=== PATIENT | female | born 1995 | race Caucasian/White ===

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

== ENCOUNTER → 2018-09-15 | Outpatient (CLI) | payer OTHER ==
--- NOTE | 2018-09-15 13:04 | RAD ---
EXAM: Bilateral breast ultrasound. HISTORY: Palpable foci in both breasts. COMPARISON: 11/02/2015. FINDINGS: Sonographic evaluation of both breasts was performed at the sites of palpable concern. At the right 10:00-2:00 positions, only normal parenchyma seen. There is no suspicious sonographic correlate for a palpable focus. At the left 8:00-12:00 positions, only normal parenchyma seen. There is no suspicious sonographic correlate for a palpable focus. IMPRESSION: 1. BI-RADS Category 1: Negative. 2. Recommend ongoing clinical follow-up of palpable foci with imaging reassessment as indicated. 3. Begin screening mammography at age 40 or as otherwise indicated. Electronically signed by: Yovani Tomlin MD (09/15/2018 1:01 PM) [facility]
== END | disposition home or self-care (01) ==
LOC: US 12:23
PROVIDERS: ATTEND Registered Nurse
DX: N63.10 Unspecified lump in the right breast, unspecified quadrant (principal); N63.20 Unspecified lump in the left breast, unspecified quadrant
CPT/HCPCS: 76641

== ENCOUNTER 2020-04-17 15:11 | Emergency (ER) | payer SELFPAY ==
[~2020-04-17] VITALS: Ht 167.6 cm; Wt 99.6 kg
[2020-04-17 15:22] VITALS: BP 109/62
[2020-04-17] MEDS ORDERED: ONDANSETRON ODT 4 MG TAB.RAPDIS PO ONE (15:45)
[2020-04-17 15:59] LABS: CLARITY,URINE HAZY; COLOR,URINE YELLOW; GLUCOSE,URINE NEG (NEG)
[2020-04-17 16:00] LABS: BILIRUBIN,URINE NEG (NEG); NITRITE,URINE NEG (NEG)
[2020-04-17 16:01] LABS: BACTERIA,URINE FEW /HPF (0-FEW); SQUAMOUS EPITHELIAL CELL,UR MANY /LPF
--- NOTE | 2020-04-17 17:46 | PHYS DOC ---
Past History Past Medical History: No Pertinent History Past Surgical History: Tonsillectomy, Other Additional Past Surgical Histo: Gastric sleeve Smoking: Non-smoker Alcohol Use: Occasionally Drug Use: None General Adult EDM: Chief Complaint: PELVIC PAIN HPI: HPI: Patient is a 22-year-old female coming in for 2 days of low abdominal pain rating to her back. States she has cramping pain that is like contractions. States she is sexually active without protection is unsure if she is per second negative is at home. Patient states that her surveillance should have started April 13 but has not. Denies any vaginal bleeding, dysuria, changes in urine color or smell, vaginal discharge, dyspareunia, bowel complaints. Patient says she has had a couple episodes of emesis this morning. Denies any history of urinary tract infections or kidney infections. Is not taking control or any other medications. Not taking medications today for pain. Patient otherwise been well without fever, cough, body aches, headaches or any other symptoms. Review of Systems: Review of Systems: All other systems within normal limits except for as noted in the HPI Current Medications: Current Meds: Current Medications Medications (Trade) Dose Ordered Sig/Amandeep Start Time Stop Time Status Last Admin Dose Admin Ondansetron HCl (Zofran Odt) 4 mg 1X ONCE 04/17/20 15:45 04/17/20 15:46 DC 04/17/20 15:44 4 MG Allergies: Allergies: Allergies Coded Allergies Type Severity Reaction Last Updated Verified No Known Drug Allergies 11/22/15 No Physical Exam: PE: Constitutional: Well developed, well nourished, no acute distress, non-toxic appearance. [] HENT: Normocephalic, atraumatic, bilateral external ears normal, nose normal. [] Eyes: PERRLA, conjunctiva normal, no discharge. [] Neck: No rigidity, supple, no stridor. [] Cardiovascular: Regular rate and rhythm, brisk cap refill [] Lungs & Thorax: Non labored symmetric respirations, no tachypnea or respiratory distress [] Abdomen: Soft, nondistended, suprapubic tenderness with no lateralizing pain. No guarding or rebound, negative McBurney's point tenderness. Skin: Warm, dry, no erythema, no rash. [] Back: No tenderness, no CVA tenderness., Bilateral lateral lumbar tenderness [] Extremities: No deformities, range of motion grossly intact, no lower extremity edema [] Neurologic: Alert and oriented X 3, no focal deficits noted. [] Psychologic: Affect normal, judgement normal, mood normal. [] Current Patient Data: Labs: Laboratory Tests Test 04/17/20 15:21 04/17/20 15:27 Urine Collection Type Unknown Urine Color Yellow Urine Clarity Hazy Urine pH 8.5 Urine Specific [place] 1.020 Urine Protein Trace (NEG-TRACE) Urine Glucose (UA) Neg mg/dL (NEG) Urine Ketones (Stick) Neg mg/dL (NEG) Urine Blood Large (NEG) Urine Nitrite Neg (NEG) Urine Bilirubin Neg (NEG) Urine Urobilinogen Dipstick 1.0 mg/dL (0.2 mg/dL) Urine Leukocyte Esterase Trace (NEG) Urine RBC 3-5 /HPF (0-2) Urine WBC 1-4 /HPF (0-4) Urine Squamous Epithelial Cells Many /LPF Urine Bacteria Few /HPF (0-FEW) POC Urine HCG, Qualitative hcg negative (Negative) Vital Signs: Vital Signs Date Time Temp Pulse Resp B/P (MAP) Pulse Ox O2 Delivery O2 Flow Rate FiO2 04/17/20 15:22 98.1 68 16 109/62 (78) 100 Room Air EKG: EKG: [] Radiology/Procedures: Radiology/Procedures: [] Heart Score: Risk Factors: Risk Factors: DM, Current or recent (<one month) smoker, HTN, HLP, family history of CAD, obesity. Risk Scores: Score 0 - 3: 2.5% MACE over next 6 weeks - Discharge Home Score 4 - 6: 20.3% MACE over next 6 weeks - Admit for Clinical Observation Score 7 - 10: 72.7% MACE over next 6 weeks - Early Invasive Strategies Course & Med Decision Making: Course & Med Decision Making Pertinent Labs and Imaging studies reviewed. (See chart for details) Urine unremarkable, patient eloped from the department before obtaining swab samples. [] Dragon Disclaimer: Dragon Disclaimer: This electronic medical record was generated, in whole or in part, using a voice recognition dictation system. Departure Departure: Impression: Primary Impression: Low back pain Disposition: 07 AMA/ELOPED/LWBS Referrals: PCP,NO (PCP) ZBIGNIEW ADAMS MD Apr 17, 2020 17:46
== END 2020-04-17 16:57 | disposition left against medical advice (07) ==
LOC: ER 15:11
DX: M54.5 Low back pain (principal); R10.30 Lower abdominal pain, unspecified; R11.10 Vomiting, unspecified
CPT/HCPCS: 81001; 81025; 87086; 99283; Q0162

== ENCOUNTER 2020-09-14 11:23 | Emergency (ER) | payer SELFPAY ==
[~2020-09-14] VITALS: Ht 167.6 cm; Wt 99.6 kg
[2020-09-14 11:32] VITALS: BP 129/80
--- NOTE | 2020-09-14 12:04 | PHYS DOC ---
Past History Past Medical History: No Pertinent History Past Surgical History: Tonsillectomy, Other Additional Past Surgical Histo: Gastric sleeve Smoking: Non-smoker Alcohol Use: Occasionally Drug Use: None General Adult EDM: Chief Complaint: TEST HPI: HPI: 25-year-old female presents because she wants to know she is . She has no other medical complaints. She does not have insurance so she can go to her regular doctor. Review of Systems: Review of Systems: Constitutional: Denies fever or chills Eyes: Denies change in visual acuity HENT: Denies nasal congestion or sore throat Respiratory: Denies cough or shortness of breath Cardiovascular: Denies chest pain or edema GI: Denies abdominal pain, nausea, vomiting, bloody stools or diarrhea : Denies dysuria Musculoskeletal: Denies back pain or joint pain Integument: Denies rash Neurologic: Denies headache, focal weakness or sensory changes Endocrine: Denies polyuria or polydipsia Lymphatic: Denies swollen glands Psychiatric: Denies depression or anxiety Allergies: Allergies: Allergies Coded Allergies Type Severity Reaction Last Updated Verified No Known Drug Allergies 11/22/15 No Physical Exam: PE: Constitutional: Well developed, well nourished, obese, no acute distress, non- toxic appearance. [] HENT: Normocephalic, atraumatic, bilateral external ears normal, oropharynx moist, no oral exudates, nose normal. [] Eyes: PERRLA, EOMI, conjunctiva normal, no discharge. [] Neck: Normal range of motion, no tenderness, supple, no stridor. [] Cardiovascular: Heart rate regular rhythm, no murmur [] Lungs & Thorax: Bilateral breath sounds clear to auscultation [] Abdomen: Bowel sounds normal, soft, no tenderness, no masses, no pulsatile masses. [] Skin: Warm, dry, no erythema, no rash. [] Back: No tenderness, no CVA tenderness. [] Extremities: No tenderness, no cyanosis, no clubbing, ROM intact, no edema. [] Neurologic: Alert and oriented X 3, normal motor function, normal sensory function, no focal deficits noted. [] Psychologic: Affect normal, judgement normal, mood normal. [] Current Patient Data: Labs: Laboratory Tests Test 09/14/20 11:53 POC Urine HCG, Qualitative hcg positive (Negative) EKG: EKG: [] Radiology/Procedures: Radiology/Procedures: [] Heart Score: C/O Chest Pain: N/A Risk Factors: Risk Factors: DM, Current or recent (<one month) smoker, HTN, HLP, family history of CAD, obesity. Risk Scores: Score 0 - 3: 2.5% MACE over next 6 weeks - Discharge Home Score 4 - 6: 20.3% MACE over next 6 weeks - Admit for Clinical Observation Score 7 - 10: 72.7% MACE over next 6 weeks - Early Invasive Strategies Course & Med Decision Making: Course & Med Decision Making Pertinent Labs and Imaging studies reviewed. (See chart for details) The patient is hCG is positive. She is . I have given her advice about getting in with [facility] and started to make her appointments. I also advised her to start taking [id number] vitamins. She is concerned about insurance but I assured her that there programs that will help her with this she just needs to get started. She is stable for discharge at this time. [] Heidi Disclaimer: Heidi Disclaimer: This electronic medical record was generated, in whole or in part, using a voice recognition dictation system. Departure Departure: Impression: Primary Impression: Disposition: 01 HOME / SELF CARE / HOMELESS Condition: STABLE Referrals: PCP,TRICIA (PCP) Patient Instructions: - First Trimester, [id number] SHIRIN VILLA DO Sep 14, 2020 12:04
[2020-09-14 12:24] LABS: BILIRUBIN,URINE NEG (NEG); CLARITY,URINE HAZY; COLOR,URINE YELLOW; GLUCOSE,URINE NEG (NEG); NITRITE,URINE NEG (NEG)
[2020-09-14 12:28] LABS: BACTERIA,URINE FEW /HPF (0-FEW); SQUAMOUS EPITHELIAL CELL,UR MANY /LPF
== END 2020-09-14 12:24 | disposition home or self-care (01) ==
LOC: ER 11:23
DX: O26.891 Other specified pregnancy related conditions, first trimester (principal); Z3A.01 Less than 8 weeks gestation of pregnancy
CPT/HCPCS: 81001; 81025; 87086; 99283-25

== ENCOUNTER 2021-01-03 20:35 | Emergency (ER) | payer OTHER ==
[~2021-01-03] VITALS: Ht 167.6 cm; Wt 99.0 kg
[2021-01-03 21:08] VITALS: BP 128/86
[2021-01-03] MEDS ORDERED: LIDOCAINE 1%/EPI 1:100,000 10 ML VIAL. INJ ONE (21:15)
[2021-01-03] MEDS ORDERED: LIDOCAINE 1%/EPI 1:100,000 20 ML VIAL. ONE (21:15)
[2021-01-03] MEDS ORDERED: CLIN300C9 PO (21:43)
[2021-01-03] MEDS ORDERED: CLINDAMYCIN HCL 150 MG CAPSULE PO ONE ×2 (21:45)
--- NOTE | 2021-01-03 21:47 | PHYS DOC ---
Past History Past Medical History: No Pertinent History (KIYA SALAZAR APRN) Past Surgical History: No Surgical History Additional Past Surgical Histo: Gastric sleeve (KIYA SALAZAR APRN) Smoking: Non-smoker Alcohol Use: None Drug Use: None (KIYA SALAZAR APRN) General Adult EDM: Chief Complaint: ABSCESS HPI: HPI: Patient is a 25-year-old female who presents with abscess. Patient states "I have had the same abscess inside my vagina many times". "I seem to always get it when I am ". Patient states that she was at work today walking around a lot and had produced a lot of pain. Patient was seen a couple days ago at [facility] for abscess but it had already resolved when she went in. Patient is reporting mild pain. Denies fever. Denies medical history. (KIYA SALAZAR APRN) Review of Systems: Review of Systems: Constitutional: Denies fever or chills Eyes: Denies change in visual acuity HENT: Denies nasal congestion or sore throat Respiratory: Denies cough or shortness of breath Cardiovascular: Denies chest pain or edema GI: Denies abdominal pain, nausea, vomiting, bloody stools or diarrhea : Denies dysuria Musculoskeletal: Denies back pain or joint pain Integument: Abscess inside vaginal wall Neurologic: Denies headache, focal weakness or sensory changes Endocrine: Denies polyuria or polydipsia Lymphatic: Denies swollen glands Psychiatric: Denies depression or anxiety (KIYA SALAZAR APRN) Current Medications: Current Meds: Current Medications Medications (Trade) Dose Ordered Sig/Amandeep Start Time Stop Time Status Last Admin Dose Admin Lidocaine/ Epinephrine (Xylocaine 1%-Epi 1:100,000) 20 ml STK-MED ONCE 01/03/21 21:15 01/03/21 21:15 DC (KIYA SALAZAR APRN) Allergies: Allergies: Allergies Coded Allergies Type Severity Reaction Last Updated Verified No Known Drug Allergies 11/22/15 No (KIYA SALAZAR APRN) Physical Exam: PE: Constitutional: Well developed, well nourished, no acute distress, non-toxic appearance. [] HENT: Normocephalic, atraumatic, bilateral external ears normal, oropharynx moist, no oral exudates, nose normal. [] Eyes: PERRLA, EOMI, conjunctiva normal, no discharge. [] Neck: Normal range of motion, no tenderness, supple, no stridor. [] Cardiovascular:Heart rate regular rhythm, no murmur [] Lungs & Thorax: Bilateral breath sounds clear to auscultation [] Abdomen: Bowel sounds normal, soft, no tenderness, no masses, no pulsatile masses. [] Skin: Warm, dry, no erythema, no rash. [] Back: No tenderness, no CVA tenderness. [] Extremities: No tenderness, no cyanosis, no clubbing, ROM intact, no edema. [] Neurologic: Alert and oriented X 3, normal motor function, normal sensory function, no focal deficits noted. [] Psychologic: Affect normal, judgement normal, mood normal. [] (KIYA SALAZAR APRN) Current Patient Data: Vital Signs: Vital Signs Date Time Temp Pulse Resp B/P (MAP) Pulse Ox O2 Delivery O2 Flow Rate FiO2 01/03/21 21:08 98.2 77 16 128/86 (100) 97 Room Air (KIYA SAALZAR APRN) EKG: EKG: [] (KIYA SALAZAR APRN) Radiology/Procedures: Radiology/Procedures: [] (KIYA SALAZAR APRN) Heart Score: C/O Chest Pain: No Risk Factors: Risk Factors: DM, Current or recent (<one month) smoker, HTN, HLP, family history of CAD, obesity. Risk Scores: Score 0 - 3: 2.5% MACE over next 6 weeks - Discharge Home Score 4 - 6: 20.3% MACE over next 6 weeks - Admit for Clinical Observation Score 7 - 10: 72.7% MACE over next 6 weeks - Early Invasive Strategies (KIYA SALAZAR APRN) Course & Med Decision Making: Course & Med Decision Making Pertinent Labs and Imaging studies reviewed. (See chart for details) [] 22-year-old female presents with abscess inside her vaginal wall. Patient reports she has had abscesses in the same area many times. Abscess did not need to be drained. Abscess drained on its own when I was performing physical exam. Patient denies pain. Sending patient home with 10 days of clindamycin. Patient given 1 dose in the ER prior to discharge. Advised patient she needs to follow-up with her [facility] if it returns. Tylenol for discomfort. Patient is appreciative and okay with discharge plan. (KIYA SALAZAR APRN) Course & Med Decision Making Did not see or evaluate patient. Did not discuss patient with [facility]. Agree with [facility]'s work-up and disposition per note. (FRANCISCO NUÑEZ MD) Heidi Disclaimer: Heidi Disclaimer: This electronic medical record was generated, in whole or in part, using a voice recognition dictation system. (KIYA SALAZAR APRN) Departure Departure: Impression: Primary Impression: Abscess Disposition: HOME / SELF CARE / HOMELESS Condition: STABLE Referrals: PCP,NO (PCP) Patient Instructions: Bartholin's Cyst and Abscess-Brief Additional Instructions: 3 times a day for 10 days. You were given 1 dose in the emergency room. Please call your [facility] and set up a follow-up appointment. Tylenol for discomfort. You were seen in the emergency room for vaginal abscess. Abscess was drained. Starting you on a prescription for clindamycin.Return to emergency room if you have worsening symptoms or concerns. EMERGENCY DEPARTMENT GENERAL DISCHARGE INSTRUCTIONS Thank you for coming to [facility] (ED) today and trusting us with you care. We trust that you had a positivie experience in our Emergency Department. If you wish to speak to the department management, you may call the director at [phone]. YOUR FOLLOW UP INSTRUCTIONS ARE FOLLOWS: 1. Do you have a private Doctor? If you do not have a private doctor, please ask for a resource list of physicians or clinics that may be able to assist you with follow up care. 2. The Emergency Physician has interpreted your x-rays. The X-Ray specialist will also review them. If there is a change in the findings, you will be notified in 48 hours when at all possible. 3. A lab test or culture has been done, your results will be reviewed and you will be notified if you need a change in treatment. ADDITIONAL INSTRUCTIONS AND INFORMATION: 1. Your care today has been supervised by a physician who is specially trained in emergency care. Many problems require more than one evaluation for a complete diagnosis and treatment. We recommend that you schedule your follow up appointment as recommended to ensure complete treatment of you illness or injury. If you are unable to obtain follow up care and continue to have a problem, or if your condition worsens, we recommend that you return to the ED. 2. We are not able to safely determine your condition over the phone nor are we able to give sound medical advice over the phone. For these safety reasons, if you call for medical advice we will ask you to come to the ED for further evaluation. 3. If you have any questions regarding these discharge instructions please call the ED at [phone]. SAFETY INFORMATION: In the interest of safety, wellness, and injury prevention; we encourage you to wear your sealbelt, if you smoke; quite smoking, and we encourage family to use a protective helmet for bicycling and other sporting events that present an increased risk for head injury. IF YOUR SYMPTOMS WORSEN OR NEW SYMPTOMS DEVELOP, OR YOU HAVE CONCERNS ABOUT YOUR CONDITION; OR IF YOUR CONDITION WORSENS WHILE YOU ARE WAITING FOR YOUR FOLLOW UP APPOINTMENT; EITHER CONTACT YOUR PRIMARY CARE DOCTOR, THE PHYSICIAN WHOSE NAME AND NUMBER YOU WERE GIVEN, OR RETURN TO THE ED IMMEDIATELY. Scripts Clindamycin Hcl (CLINDAMYCIN HCL) 300 Mg Capsule 300 MG PO TID for abscess for 10 Days, #30 CAP Prov: KIYA SALAZAR APRN 01/03/21 KIYA SALAZAR APRN Jan 03, 2021 21:47 FRANCISCO NUÑEZ MD Jan 03, 2021 22:27
[2021-01-03] MEDS ORDERED: LIDOCAINE 1%/EPI 1:100,000 20 ML VIAL. INJ ONE (22:15)
== END 2021-01-03 22:00 | disposition home or self-care (01) ==
LOC: ER 20:35
DX: O26.892 Other specified pregnancy related conditions, second trimester (principal); N76.0 Acute vaginitis; Z3A.21 21 weeks gestation of pregnancy
CPT/HCPCS: 99283-25

== ENCOUNTER 2021-02-14 10:05 | Emergency (ER) | payer OTHER ==
[~2021-02-14] VITALS: Ht 167.6 cm; Wt 101.0 kg
[~2021-02-14 10:05] MED LIST changes: +CLIN-95 PO
--- NOTE | 2021-02-14 10:11 | PHYS DOC ---
Past History Past Medical History: No Pertinent History Past Surgical History: No Surgical History Additional Past Surgical Histo: Gastric sleeve Smoking: Non-smoker Alcohol Use: None Drug Use: None Adult General HPI HPI Patient is a 25-year-old female, otherwise healthy, G3, P2 at 27 weeks who presents with a chief complaint of shortness of breath that lasted a few minutes. States it started about 9:30 AM this morning lasted a few minutes and then went away. States she has never anything like this before. States that it has resolved and feels well. Denies any recent traumas, travels, illnesses, fevers, chest pain, other bouts of shortness of breath, abdominal pain, nausea, vomiting, diarrhea, dysuria, hematuria, blood in the stool. Denies any history of VTE's. Denies any cardiac history in her family at her age. Denies any alcohol or drug use. Denies any vaginal bleeding, discharge or pain. Denies any abdominal cramping or contractions. Review of Systems Review of Systems Review of systems otherwise unremarkable except noted in HPI Allergies Allergies Allergies Coded Allergies Type Severity Reaction Last Updated Verified No Known Drug Allergies 11/22/15 No Physical Exam Physical Exam Constitutional: Well developed, well nourished, no acute distress, non-toxic appearance. [] HENT: Normocephalic, atraumatic, bilateral external ears normal, oropharynx moist, no oral exudates, nose normal. [] Eyes: PERRLA, EOMI, conjunctiva normal, no discharge. [] Neck: Normal range of motion, no tenderness, supple, no stridor. [] Cardiovascular:Heart rate regular rhythm, no murmur [] Lungs & Thorax: Bilateral breath sounds clear to auscultation [] Abdomen: Bowel sounds normal, soft, no tenderness, no masses, no pulsatile masses. [] Skin: Warm, dry, no erythema, no rash. [] Back: No tenderness, no CVA tenderness. [] Extremities: No tenderness, no cyanosis, no clubbing, ROM intact, no edema. [] Neurologic: Alert and oriented X 3, normal motor function, normal sensory functi on, no focal deficits noted. [] Psychologic: Affect normal, judgement normal, mood normal. [] EKG EKG Rate of 93, QRS of 76, QTc of 425, no STEMI [] Radiology/Procedures Radiology/Procedures [] Heart Score C/O Chest Pain: No Risk Factors: Risk Factors: DM, Current or recent (<one month) smoker, HTN, HLP, family history of CAD, obesity. Risk Scores: Risk Factors: DM, Current or recent (<one month) smoker, HTN, HLP, family history of CAD, obesity. Course & Med Decision Making Course & Med Decision Making Patient is a 25-year-old female, G3, P2 at 27 weeks presents with a few minutes of shortness of breath before coming to the emergency department that is now resolved Vital signs not concerning. Physical exam noted above. EKG noted above and not concerning for ischemic process. Troponin not concerning. Chest x-ray not concerning. Laboratory analysis not concerning outside of asymptomatic bacteriuria. Started on Keflex. Advised to follow-up soon as possible with primary care physician and set up a follow-up visit. Gave return precautions to the ED. Patient grateful, verbalized understanding and agree with plan of discharge. Dragon Disclaimer Dragon Disclaimer This electronic medical record was generated, in whole or in part, using a voice recognition dictation system. Departure Departure: Impression: Primary Impression: Shortness of breath Additional Impression: Asymptomatic bacteriuria Disposition: HOME / SELF CARE / HOMELESS Condition: GOOD Referrals: PCP,TRICIA (PCP) LENNOX PICHARDO Patient Instructions: Asymptomatic Bacteriuria, Female Additional Instructions: Thank you for coming into the emergency department today and allowing us to take care of you. Please read all the attached information carefully to go back over some of the things we discussed. Scripts Cephalexin (KEFLEX) 500 Mg Capsule 1 CAP PO BID for UTI for 5 Days, #10 CAP Prov: FRANCISCO NUÑEZ MD 02/14/21 Problem Qualifiers FRANCISCO NUÑEZ MD Feb 14, 2021 10:11
[2021-02-14 10:45] LABS: BASO % 1 % (0-3); EOS # 0.1 x10^3/uL (0.0-0.7); EOS % 1 % (0-3); HEMATOCRIT 30.8 % (36.0-47.0); HEMOGLOBIN 10.3 g/dL (12.0-15.5); LYMPH # 1.2 x10^3/uL (1.0-4.8); LYMPH % 15 % (24-48); MEAN CORPUSCULAR HEMOGLOBIN 30 pg (25-35); MEAN CORPUSCULAR HGB CONC 33 g/dL (31-37); MEAN CORPUSCULAR VOLUME 90 fL (79-100); MONO # 0.6 x10^3/uL (0.0-1.1); MONO % 7 % (0-9); NEUT # 5.9 x10^3uL (1.8-7.7); NEUT % 76 % (31-73); PLATELET COUNT 286 x10^3/uL (140-400); RED BLOOD COUNT 3.42 x10^6/uL (3.50-5.40); RED CELL DISTRIBUTION WIDTH 12.7 % (11.5-14.5); WHITE BLOOD COUNT 7.8 x10^3/uL (4.0-11.0)
[2021-02-14 10:55] LABS: CALCIUM 8.8 mg/dL (8.5-10.1); CREATININE 0.6 mg/dL (0.6-1.0); GFR 123.9; POTASSIUM 3.8 mmol/L (3.5-5.1)
[2021-02-14 11:01] LABS: ALBUMIN 2.7 g/dL (3.4-5.0); ALBUMIN/GLOBULIN RATIO 0.8 (1.0-1.7); TOTAL BILIRUBIN 0.3 mg/dL (0.2-1.0)
[2021-02-14 11:10] LABS: BACTERIA,URINE FEW /HPF (0-FEW); BILIRUBIN,URINE NEG (NEG); CLARITY,URINE CLOUDY; COLOR,URINE YELLOW; GLUCOSE,URINE NEG (NEG); NITRITE,URINE NEG (NEG); SQUAMOUS EPITHELIAL CELL,UR MANY /LPF; UROBILINOGEN,URINE 0.2 mg/dL (0.2 mg/dL)
--- NOTE | 2021-02-14 11:28 | RAD ---
XR CHEST 1V CLINICAL INDICATIONS: Shortness of breath COMPARISON: None available. Findings: No acute lung infiltrate or pleural effusion or pulmonary edema or lung mass or pneumothora x is seen. The heart size, pulmonary vasculature, mediastinum and both buzz are unremarkable. IMPRESSION: No acute radiographic abnormality is seen. Electronically signed by: Patrick Santos MD (02/14/2021 11:26 AM) [id number]
[2021-02-14] MEDS ORDERED: CEPH500C PO (12:04)
[2021-02-14] MEDS ORDERED: CEPHALEXIN 250 MG CAPSULE PO ONE (12:15)
[2021-02-14 12:18] VITALS: BP 111/57
--- NOTE | 2021-02-14 18:53 | EKG ---
[address] [address] Test Date: 2021-02-14 Test Time: 10:14:01 Pat Name: JORGE RENNER Department: Room: Gender: F Health Officer: WALTER : 1995 Requested By: FRANCISCO NUÑEZ Order Number: [id number] Reading MD: Jamarcus Lorenz Measurements Intervals [place] Rate: 93 P: 42 DC: 136 QRS: 20 QRSD: 76 T: 26 QT: 340 QTc: 425 Interpretive Statements SINUS RHYTHM RI6.02 No previous ECG available for comparison Electronically Signed On 02-18-2021 9:54:03 [facility] [employer] by Jamarcus Lorenz
== END 2021-02-14 12:15 | disposition home or self-care (01) ==
LOC: ER 10:05
DX: O99.512 Diseases of the respiratory system complicating pregnancy, second trimester (principal); O26.892 Other specified pregnancy related conditions, second trimester; R82.71 Bacteriuria; Z3A.27 27 weeks gestation of pregnancy
CPT/HCPCS: 36415; 71045; 80053; 81001; 84484; 85025; 87086; 93005; 99285-25